=== PATIENT | male | born 1950 ===

== ENCOUNTER 2019-01-31 07:03 | Day surgery (SDC) | payer OTHER ==
--- OUTSIDE RECORDS SUMMARY | 2019-01-31 07:06 | XMS REPORT | Clinical Summary ---
:1950 Author Organization [facility] Address [address] [place] [address] Care Team Providers Name Role Phone Unavailable Primary Care Provider Unavailable Allergies No Known Allergies Medications Medication Sig Dispensed Refills Start Date End Date Status sulfamethoxazole-trim Take 20 mLs by 140 mL 0 12/30/2018 01/06/2019 ethoprim mouth daily for (BACTRIM,SEPTRA) 7 days. 200-40 mg/5 mL suspension Active Problems Not on file Encounters Date Type Specialty Care Team Description 12/30/2018 Emergency Emergency Medicine Negar Vieyra MD SOB (shortness of breath) (Primary Dx); History of stroke; History of diabetes mellitus; Acute urinary tract infection; Renal insufficiency 12/30/2018 Travel after 01/30/2018 Social History Tobacco Use Types Packs/Day Years Used Date Never Smoker Smokeless Tobacco: Never Used Alcohol Use Drinks/Week oz/Week Comments No Alcohol Habits Answer Date Recorded How often do you have a drink containing alcohol? Never 12/30/2018 How many drinks containing alcohol do you have on a typical Not asked day when you are drinking? How often do you have six or more drinks on one occasion? Not asked Sex Assigned at Date Recorded Not on file Job Start Date Occupation Industry Not on file Not on file Not on file Travel History Travel Start Travel End No recent travel history available. Last Filed Vital Signs Vital Sign Reading Time Taken Blood Pressure 136/80 12/30/2018 8:10 PM CDT Pulse 78 12/30/2018 8:10 PM CDT Temperature 36.7 C (98 F) 12/30/2018 8:10 PM CDT Respiratory Rate 16 12/30/2018 8:10 PM CDT Oxygen Saturation 100% 12/30/2018 8:10 PM CDT Inhaled Oxygen Concentration - - Weight 77.1 kg (170 lb) 12/30/2018 3:32 PM CDT Height 172.7 cm (5' 8") 12/30/2018 3:32 PM CDT Body Mass Index 25.85 12/30/2018 3:32 PM CDT Plan of Treatment Not on file Procedures Procedure Name Priority Date/Time Associated Comments Diagnosis URINALYSIS W/ REFLEX STAT 12/30/2018 6:10 Results for this URINE CULTURE PM CDT procedure are in the results section. URINE CULTURE STAT 12/30/2018 6:10 Results for this PM CDT procedure are in the results section. CBC W/PLT COUNT & STAT 12/30/2018 6:04 Results for this AUTO DIFFERENTIAL PM CDT procedure are in the results section. CREATINE KINASE (CK) STAT 12/30/2018 6:04 Results for this PM CDT procedure are in the results section. B-TYPE NATRIURETIC STAT 12/30/2018 6:04 Results for this FACTOR (BNP) PM CDT procedure are in the results section. PT/APTT STAT 12/30/2018 6:04 Results for this PM CDT procedure are in the results section. CBC W/PLT COUNT & STAT 12/30/2018 6:04 Results for this AUTO DIFFERENTIAL PM CDT procedure are in the results section. TROPONIN I STAT 12/30/2018 6:04 Results for this PM CDT procedure are in the results section. MAGNESIUM STAT 12/30/2018 6:04 Results for this PM CDT procedure are in the results section. BASIC METABOLIC PANEL STAT 12/30/2018 6:04 Results for this (7) PM CDT procedure are in the results section. XR CHEST 1 VIEW STAT 12/30/2018 5:30 Results for this PORTABLE/BEDSIDE PM CDT procedure are in the results section. after 01/30/2018 Results Urinalysis w/Microscopic + Reflex to Culture (12/30/2018 6:10 PM CDT) Color, UA Yellow [facility] Clarity, UA Cloudy [facility] Specific [place], UA 1.014 1.001 - 1.035 [facility] pH, UA 8.5 (H) 5.0 - 8.0 [facility] Protein, UA 600 mg/dL (A) Negative [facility] Glucose, UA Negative Negative [facility] Ketones, UA Negative Negative [facility] Bilirubin, UA Negative Negative [facility] Blood, UA Negative Negative [facility] Nitrite, UA Negative Negative [facility] Leukocytes, UA Large (A) Negative [facility] Urobilinogen, UA 0.2 0.2 - 1.0 mg/dL [facility] RBC, UA 0 /HPF [facility] WBC, UA 36 /HPF [facility] Mucus Occasional [facility] Triple Phosphate Crystals Many [facility] Specimen Source [facility] Specimen Urine Performing Organization Address City/State/Zipcode Phone Number [facility] [address] [place] [address] CENTER Urine culture (12/30/2018 6:10 PM CDT) Result >100,000 col/mL Proteus mirabilis [facility] () [place] Specimen Urine Organism Antibiotic Method Susceptibility Proteus mirabilis Amikacin <=2: Susceptible Proteus mirabilis Ampicillin + Sulbactam <=2: Susceptible [facility] Aztreonam <=1: Susceptible Proteus mirabilis Cefepime <=1: Susceptible Proteus mirabilis Cefoxitin <=4: Susceptible [facility] Ceftazidime <=1: Susceptible [facility] Ceftriaxone <=1: Susceptible [facility] Ertapenem <=0.5: Susceptible [facility] Gentamicin <=1: Susceptible [facility] Levofloxacin >=8: Resistant Proteus mirabilis Meropenem 1: Susceptible [facility] Nitrofurantoin 128: Resistant [facility] Piperacillin + Tazobactam <=4: Susceptible [facility] Tetracycline >=16: Resistant [facility] Tobramycin <=1: Susceptible Proteus mirabilis Trimethoprim + Sulfamethoxazole <=20: Susceptible Performing Organization Address [facility]/Zipcode Phone Number [address] [address] [place] PT/PTT (12/30/2018 6:04 PM CDT) Protime 13.2 11.9 - 14.2 seconds [facility] INR 1.1 <=5.9 [facility] PTT 25.8 22.5 - 36.0 seconds [facility] Specimen Blood Narrative Performed At Effective 12/08/2018: PT Reference Range [facility] Change New: 11.9-14.2Previous: 11.7-14.7 RECOMMENDED COUMADIN/WARFARIN INR THERAPY RANGES STANDARD DOSE: 2.0-3.0Includes: PROPHYLAXIS for venous thrombosis, systemic embolization; TREATMENT for venous thrombosis and/or pulmonary embolus. HIGH RISK: Target INR is 2.5-3.5 for patients wiht mechanical heart valves. Performing Organization Address City/[facility] Phone Number [address] [address] [phone] [place] CBC with platelet count + automated diff (12/30/2018 6:04 PM CDT) WBC 10.4 3.5 - 10.5 K/L [facility] RBC 2.87 (L) 4.63 - 6.08 M/L [facility] Hemoglobin 8.8 (L) 13.7 - 17.5 GM/DL [facility] Hematocrit 26.4 (L) 40.1 - 51.0 % [facility] MCV 92.0 79.0 - 92.2 fL [facility] MCH 30.7 25.7 - 32.2 pg [facility] MCHC 33.3 32.3 - 36.5 GM/DL [facility] RDW 14.1 11.6 - 14.4 % [facility] Platelets 216 150 - 450 K/CU MM [facility] MPV 11.4 9.4 - 12.4 fL [facility] nRBC 0 0 - 0 /100 WBC [facility] % Neutros 83 % [facility] % Lymphs 8 % [facility] % Monos 6 % [facility] % Eos 3 % [facility] % Baso 0 % [facility] # Neutros 8.64 (H) 1.78 - 5.38 K/L [facility] # Lymphs 0.84 (L) 1.32 - 3.57 K/L [facility] # Monos 0.62 0.30 - 0.82 K/L [facility] # Eos 0.26 0.04 - 0.54 K/L [facility] # Baso 0.03 0.01 - 0.08 K/L [facility] Immature Granulocytes-Relative 1 0 - 1 % [facility] Specimen Blood Performing Organization Address City/State/Zipcode Phone Number [facility] [address] [place] [address] [phone] CENTER Troponin I (12/30/2018 6:04 PM CDT) Troponin I 0.02 0.00 - 0.03 ng/mL [facility] Specimen Blood Narrative Performed At Troponin I (TnI) levels must be interpreted [facility] in the context of the presenting symptoms and the clinical findings. Elevated TnI levels indicate myocardial damage, but are not specific for ischemic heart disease. Elevated TnI levels are seen in patients with other cardiac conditions (including myocarditis and congestive heart failure), and slight TnI elevations occur in patients with other conditions, including sepsis, renal failure, acidosis, acute neurological disease, and persistent tachyarrhythmia. Performing Organization Address City/[facility] Phone Number [address] [id number] [phone] CENTER B-type Natriuretic Factor (BNP) (12/30/2018 6:04 PM CDT) BNP 14 0 - 100 pg/mL [facility] Specimen Blood Performing Organization Address [facility] Phone Number [address] [address] [phone] CENTER Magnesium (12/30/2018 6:04 PM CDT) Magnesium 2.0Comment: Specimen slightly 1.6 - 2.6 mg/dL [facility] Spec[facility] Blood Performing Organization Address [facility] Phone Number [address] [address] [place] Creatine Kinase (CK) (12/30/2018 6:04 PM CDT) Total CK 25 (L) 29 - 200 U/L [facility] Specimen Blood Performing Organization Address [facility] Phone Number [address] [address] [place] Basic Metabolic Panel (12/30/2018 6:04 PM CDT) Sodium 137 136 - 145 meq/L [facility] Potassium 4.3Comment: Specimen slightly 3.5 - 5.1 meq/L [facility] hemolyzed [facility] Chloride 103 98 - 107 meq/L [facility] CO2 25 22 - 29 meq/L [facility] BUN 68 (H) 7 - 21 mg/dL [facility] Creatinine 2.82 (H)Comment: Specimen 0.57 - 1.25 mg/dL [facility] slightly hemolyzed [facility] Glucose 309 (H) 70 - 105 mg/dL [facility] Calcium 11.3 (H) 8.4 - 10.2 mg/dL [facility] EGFR 23Comment: INSUFFICIENT mL/min/1.73 sq m [facility] CLINICAL DATA TO CALCULATE MEDICAL [facility]ENTER ESTIMATED GFR. Specimen Blood Performing Organization Address City/State/Zipcode Phone Number [facility] [address] [place] [address] [phone] CENTER XR chest 1 view portable / bedside (12/30/2018 5:30 PM CDT) Specimen Narrative Performed At FINAL REPORT [facility] RIS AP view of the chest dated 12/30/2018 CLINICAL INFORMATION: SHORTNESS OF BREATH ABNORMAL LAB Comment:Heart is normal in size. Pulmonary vasculature is unremarkable. Lungs are clear. No pulmonary infiltrate or pleural effusion is present. Impression:No active cardiopulmonary disease. Signed: Clarence Guevara MD Report Verified Date/Time:12/30/2018 17:59:44 Reading Location: [facility] C013 Consult Reading Room Procedure Note Interface, External Ris In - 12/30/2018 6:01 PM CDT FINAL REPORT AP view of the chest dated 12/30/2018 CLINICAL INFORMATION: SHORTNESS OF BREATH ABNORMAL LAB Comment: Heart is normal in size. Pulmonary vasculature is unremarkable. Lungs are clear. No pulmonary infiltrate or pleural effusion is present. Impression: No active cardiopulmonary disease. Signed: Clarence Guevara MD Report Verified Date/Time: 12/30/2018 17:59:44 Reading Location: [facility] B1 C013W Consult Reading Room Performing Organization Address City/State/Zipcode Phone Number GE RIS after 01/30/2018 Insurance Payer Benefit Plan / Group Subscriber ID Type Phone Address MEDICARE MEDICARE A B xxxxxxxxxxx Medicare
--- OUTSIDE RECORDS SUMMARY | 2019-01-31 07:06 | XMS REPORT ---
:1950 [facility] Address [address] [place] [address] Care Team Providers Name Role Phone RONNY CHEN Unavailable Unavailable Problems This patient has no known problems. Allergies, Adverse Reactions, Alerts This patient has no known allergies or adverse reactions. Medications This patient has no known medications. Encounters Start End Encounter Admission Attending Care Care Encounter Date/Time Date/Time Type Type Clinicians Facility Department ID 2018-12-08 2018-12-08 Inpatient E [facility] [id number] 20:18:00 16:29:00 Results Test Description Test Time Test Comments Text Results Atomic Results Result Comments B-TYPE NATRIURETIC FACTOR (BNP) 2018-12-30 19:12:00 Test Item Value Reference Range Comments B-TYPE NATRIURETIC PEPTIDE (BEAKER) (test efwy=632) 14 pg/mL 0-100 BASIC METABOLIC [id number] 18:49:00 Test Item Value Reference Range Comments SODIUM (BEAKER) (test 137 meq/L 136-145 yhno=269) POTASSIUM (BEAKER) (test 4.3 meq/L 3.5-5.1 Specimen slightly ikue=758) hemolyzed CHLORIDE (BEAKER) (test 103 meq/L 98-107 wzee=304) CO2 (BEAKER) (test 25 meq/L 22-29 ypbj=011) BLOOD UREA NITROGEN 68 mg/dL 7-21 (BEAKER) (test ezrx=828) CREATININE (BEAKER) 2.82 mg/dL 0.57-1.25 Specimen slightly (test owui=354) hemolyzed GLUCOSE RANDOM (BEAKER) 309 mg/dL 70-105 (test hits=477) CALCIUM (BEAKER) (test 11.3 mg/dL 8.4-10.2 qvgx=658) EGFR (BEAKER) (test 23 mL/min/1.73 sq m INSUFFICIENT CLINICAL DATA gywu=7231) TO CALCULATE ESTIMATED GFR. PT/[id number] 18:47:00 Test Item Value Reference Range Comments PROTIME (BEAKER) (test xede=361) 13.2 seconds 11.9-14.2 INR (BEAKER) (test fhxg=597) 1.1 <=5.9 PARTIAL THROMBOPLASTIN TIME (BEAKER) (test 25.8 seconds 22.5-36.0 rklu=252) Effective 12/08/2018: PT Reference Range ChangeNew: 11.9-14.2 Previous: 11.7- 14.7RECOMMENDED COUMADIN/WARFARIN INR THERAPY RANGESSTANDARD DOSE: 2.0-3.0 Includes: PROPHYLAXIS for venous thrombosis, systemic embolization; TREATMENT for venous thrombosis and/or pulmonary embolus.HIGH RISK: Target INR is2.5-3.5 for patients wiht mechanical heart valves.TROPONIN [id number] 18:45:00 Test Item Value Reference Range Comments TROPONIN I (BEAKER) (test rcxk=299) 0.02 ng/mL 0.00-0.03 Troponin I (TnI) levels must be interpreted in the context of the presenting symptoms and the clinical findings. Elevated TnI levels indicate myocardial damage, but are not specific for ischemic heart disease. Elevated TnI levels are seen in patients with other cardiac conditions (including myocarditis and congestive heart failure), and slight TnI elevations occur in patients with other conditions, including sepsis, renal failure, acidosis, acute neurological disease, and persistent tachyarrhythmia.URINALYSIS W/ REFLEX URINE [id number] 18:41:00 Test Item Value Reference Range Comments COLOR (BEAKER) (test nuhl=953) Yellow CLARITY (BEAKER) (test fzmr=103) Cloudy SPECIFIC GRAVITY UA (BEAKER) (test afzy=418) 1.014 1.001-1.035 PH UA (BEAKER) (test ykpp=851) 8.5 5.0-8.0 PROTEIN UA (BEAKER) (test vshh=920) 600 mg/dL Negative GLUCOSE UA (BEAKER) (test fbol=087) Negative Negative KETONES UA (BEAKER) (test mhao=515) Negative Negative BILIRUBIN UA (BEAKER) (test ztkt=742) Negative Negative BLOOD UA (BEAKER) (test okcz=309) Negative Negative NITRITE UA (BEAKER) (test kqmv=638) Negative Negative LEUKOCYTE ESTERASE UA (BEAKER) (test nvyr=017) Large Negative UROBILINOGEN UA (BEAKER) (test krwq=391) 0.2 mg/dL 0.2-1.0 RBC UA (BEAKER) (test ukzq=232) 0 /HPF WBC UA (BEAKER) (test bekz=687) 36 /HPF MUCUS (BEAKER) (test ctnh=3938) Occasional TRIPLE PHOSPHATE CRYSTALS (BEAKER) (test Many qmut=9928) SOURCE(BEAKER) (test mufu=4068) [id number] 18:39:00 Test Item Value Reference Range Comments MAGNESIUM (BEAKER) (test 2.0 mg/dL 1.6-2.6 Specimen slightly hemolyzed aohe=965) CREATINE KINASE (CK)2018-12-30 18:39:00 Test Item Value Reference Range Comments CREATINE KINASE TOTAL (BEAKER) (test tkiz=847) 25 U/L 29-200 CBC W/PLT COUNT & AUTO [id number] 18:20:00 Test Item Value Reference Range Comments WHITE BLOOD CELL COUNT (BEAKER) (test ftlv=029) 10.4 K/ L 3.5-10.5 RED BLOOD CELL COUNT (BEAKER) (test odlf=835) 2.87 M/ L 4.63-6.08 HEMOGLOBIN (BEAKER) (test vboo=427) 8.8 GM/DL 13.7-17.5 HEMATOCRIT (BEAKER) (test vclc=607) 26.4 % 40.1-51.0 MEAN CORPUSCULAR VOLUME (BEAKER) (test eult=861) 92.0 fL 79.0-92.2 MEAN CORPUSCULAR HEMOGLOBIN (BEAKER) (test 30.7 pg 25.7-32.2 kfyv=735) MEAN CORPUSCULAR HEMOGLOBIN CONC (BEAKER) (test 33.3 GM/DL 32.3-36.5 izfo=434) RED CELL DISTRIBUTION WIDTH (BEAKER) (test 14.1 % 11.6-14.4 nuzh=237) PLATELET COUNT (BEAKER) (test cwke=883) 216 K/CU MM 150-450 MEAN PLATELET VOLUME (BEAKER) (test ndbp=874) 11.4 fL 9.4-12.4 NUCLEATED RED BLOOD CELLS (BEAKER) (test 0 /100 WBC 0-0 nqnf=798) NEUTROPHILS RELATIVE PERCENT (BEAKER) (test 83 % mojx=078) LYMPHOCYTES RELATIVE PERCENT (BEAKER) (test 8 % nayj=450) MONOCYTES RELATIVE PERCENT (BEAKER) (test 6 % rhds=559) EOSINOPHILS RELATIVE PERCENT (BEAKER) (test 3 % fths=687) BASOPHILS RELATIVE PERCENT (BEAKER) (test 0 % vgjf=415) NEUTROPHILS ABSOLUTE COUNT (BEAKER) (test 8.64 K/ L 1.78-5.38 cdiu=776) LYMPHOCYTES ABSOLUTE COUNT (BEAKER) (test 0.84 K/ L 1.32-3.57 zhrp=445) MONOCYTES ABSOLUTE COUNT (BEAKER) (test 0.62 K/ L 0.30-0.82 rmfo=543) EOSINOPHILS ABSOLUTE COUNT (BEAKER) (test 0.26 K/ L 0.04-0.54 wzba=674) BASOPHILS ABSOLUTE COUNT (BEAKER) (test 0.03 K/ L 0.01-0.08 utsl=331) IMMATURE GRANULOCYTES-RELATIVE PERCENT (BEAKER) 1 % 0-1 (test peec=9908) RAD, CHEST, 1 VIEW, NON [id number] 17:59:00Reason for exam:->SHORTNESS OF BREATHReason for exam:->ABNORMAL LABFINAL REPORT AP view of the chest dated 12/30/2018 CLINICAL INFORMATION: SHORTNESS OF BREATHABNORMAL LAB Comment: Heart is normal in size. Pulmonary vasculature is unremarkable.Lungs are clear. No pulmonary infiltrate or pleural effusion is present. Impression: No active cardiopulmonary disease. Signed: Clarence Guevara MDReport Verified Date/Time: 12/30/2018 17:59:44 Reading Location: [facility] C013W Consult Reading Room
[2019-01-31] MEDS ORDERED: NA CHLORIDE 0.9% 1,000 ML ONE (08:19)
[2019-01-31] MEDS ORDERED: PROPOFOL 200 MG/20 ML VIAL IV ONE (08:52)
[2019-01-31] MEDS ORDERED: LIDOCAINE 1% MPF 2 ML AMPULE ONE (08:52)
[2019-01-31] MEDS ORDERED: EPHEDRINE SULF 50 MG/ML VIAL ONE (09:19)
--- NOTE | 2019-01-31 19:27 | OP ---
Surgeon: Zeferino Brown MD Procedure To Be Performed: Esophagogastroduodenoscopy. Indication For Procedure: Iron-deficiency anemia, failure to thrive due to inability to swallow. Plan For Anesthesia: Monitored anesthesia care. Complexity: High due to patient's comorbidities. Technique: After obtaining informed consent from the patient's family and healthcare proxy and expla ining the risks and complications which include but are not limited to bleeding, infection, perforati on, and anesthesia complications, the patient was placed in a left lateral position. Sedation was gi ruchi. From then on, the scope was advanced to the mouth and carefully guided up until the 3rd portion of the duodenum. After completion of examination, scope and equipment were withdrawn and procedure terminated in a safe manner. Findings: Esophagus: From mid to distal esophagus, there was evidence of LA grade B to C esophagiti s with superficial esophageal ulceration. The mucosa in the distal portion around 2-3 cm appeared gr anular. Multiple biopsies were taken from the mid and distal esophagus together. Hiatal hernia was also seen in the lower esophagus. This was around 2 cm. The GE junction was at 35 cm from the incis ors. Stomach: There was evidence of moderate patchy erythema in the body and evidence of moderate hemorrh agic gastritis in the antrum. Antral and body biopsies were taken. No active bleeding was seen thou gh. Duodenum, the bulb, and second portion appeared normal. A few erosions were seen in the third p ortion. Small bowel biopsies were taken. In the body of the stomach, there was evidence of a balloon gastros noris tube that was in place. Complications: None. Tolerance To Anesthesia: Excellent. Postoperative Diagnoses: Esophagitis with ulceration, hiatal hernia, hemorrhagic gastritis, duodenal erosions. Plan: 1.Await pathology results. 2.Avoid NSAIDs. 3.Start PPI b.i.d. for a month and then decrease to p.o. 4.Follow up in the GI clinic in 2 weeks. US/MODL Voice ID: [id number] Report ID: [id number]
== END 2019-01-31 10:05 | disposition home or self-care (01) ==
LOC: OR 07:03
PROVIDERS: ATTEND Internal Medicine Gastroenterology
PROC: 0DB88ZX Excision of Small Intestine, Via Natural or Artificial Opening Endoscopic, Diagnostic (ICD-10-PCS; 2019-01-31)
PROC: 0DB78ZX Excision of Stomach, Pylorus, Via Natural or Artificial Opening Endoscopic, Diagnostic (ICD-10-PCS; 2019-01-31)
PROC: 0DB58ZX Excision of Esophagus, Via Natural or Artificial Opening Endoscopic, Diagnostic (ICD-10-PCS; principal; 2019-01-31 09:00)
DX: K29.51 Unspecified chronic gastritis with bleeding (principal); K52.9 Noninfective gastroenteritis and colitis, unspecified; K22.10 Ulcer of esophagus without bleeding; K44.9 Diaphragmatic hernia without obstruction or gangrene; K26.9 Duodenal ulcer, unspecified as acute or chronic, without hemorrhage or perforation; D64.9 Anemia, unspecified; R62.7 Adult failure to thrive; Z68.26 Body mass index [BMI] 26.0-26.9, adult; R13.10 Dysphagia, unspecified; E11.9 Type 2 diabetes mellitus without complications; I10 Essential (primary) hypertension; Z79.899 Other long term (current) drug therapy; Z86.73 Personal history of transient ischemic attack (TIA), and cerebral infarction without residual deficits; Z93.1 Gastrostomy status
CPT/HCPCS: 43239; 88312 ×2; 82962; 88305; J2001; J7030; J2704